=== PATIENT | male | born 1945 | race Caucasian/White ===

== ENCOUNTER 2017-08-05 06:40 | Day surgery (SDC) | payer MEDICARE ==
[2017-08-01 15:25] VITALS: BMI 30.8
[~2017-08-05 06:40] MED LIST: LACTATED RINGERS 1,000 ML IV SCH
[2017-08-05 07:18] VITALS: TEMP 98.7
[2017-08-05 07:43] LABS: Glucose,Whole Blood 124 mg/dL (75-99)
[2017-08-05] MEDS ORDERED: PROPOFOL 10 MG/ML 20 ML VIAL IV ONE (07:44)
--- NOTE | 2017-08-05 07:46 | P.GSHP ---
History of Present Illness H&P Date: 08/05/17 Chief Complaint: Screening colonoscopy This is a 72-year-old male referred from Dr. Castle. Patient rents today for screening colonoscopy. He denies a significant GI complaints. Past Medical History Past Medical History: Atrial Fibrillation, Coronary Artery Disease (CAD), Diabetes Mellitus, Hyperlipidemia, Hypertension, Osteoarthritis (OA) History of Any Multi-Drug Resistant Organisms: None Reported Past Surgical History: Appendectomy, Tonsillectomy Additional Past Surgical History / Comment(s): rectal abcess, carpal tunnel, cardioversion Past Anesthesia/Blood Transfusion Reactions: No Reported Reaction Smoking Status: Former smoker - Past Family History Mother Family Medical History: Cancer Medications and Allergies Home Medications Medication Instructions Recorded Confirmed Type Albuterol Sulfate [Ventolin HFA] 2 puff INHALATION RT-Q4H PRN 09/09/15 08/05/17 History Atorvastatin [Lipitor] 10 mg PO DAILY 09/09/15 08/05/17 History Temazepam [Restoril] 30 mg PO HS 09/09/15 08/05/17 History metFORMIN HCL [Glucophage] 500 mg PO DAILY 09/09/15 08/05/17 History Allergies Allergy/AdvReac Type Severity Reaction Status Date / Time No Known Allergies Allergy Verified 08/01/17 15:35 Surgical - Exam Vital Signs Temp Pulse Resp BP Pulse Ox 98.7 F 69 14 133/74 94 L 08/05/17 07:11 08/05/17 07:11 08/05/17 07:11 08/05/17 07:11 08/05/17 07:11 - General well developed, no distress - Eyes PERRL - ENT normal pinna - Neck no masses - Respiratory normal expansion - Cardiovascular Rhythm: regular - Abdomen Abdomen: soft, non tender Results - Labs Abnormal Lab Results - Last 24 Hours (Table) 08/05/17 Range/Units 07:24 POC Glucose (mg/dL) 124 H (75-99) mg/dL Assessment and Plan Assessment: We'll perform screening colonoscopy.
[2017-08-05 08:17] VITALS: BP 115/79; PULSE 69; RESP 18
--- NOTE | 2017-08-05 13:46 | P.OP ---
Date of Procedure: 08/05/17 Preoperative Diagnosis: Screening colonoscopy Postoperative Diagnosis: Normal colon Hemorrhoids Procedure(s) Performed: Colonoscopy Anesthesia: MAC Surgeon: Cristiano Martinez Pathology: none sent Condition: stable Disposition: PACU Description of Procedure: PROCEDURE: The patient was placed on the endoscopy table in the lateral position. Digital rectal examination was performed which revealed mild external hemorrhoids.. The prostate was symmetrical without nodules. Flexible colonoscope was then placed in the patient's anus and passed throughout the entire colon. The ileocecal valve was visualized. The cecum, ascending, transverse, descending and sigmoid colon were normal. The rectum was normal as well. There were no masses, polyps or diverticula noted in the entire colon.
== END 2017-08-05 08:50 | disposition home or self-care (01) ==
LOC: ORWHC2ENDO 06:40
PROVIDERS: ATTEND Surgery
DX: Z12.11 Encounter for screening for malignant neoplasm of colon (principal); I48.91 Unspecified atrial fibrillation; I25.10 Atherosclerotic heart disease of native coronary artery without angina pectoris; K64.4 Residual hemorrhoidal skin tags; E11.9 Type 2 diabetes mellitus without complications; I10 Essential (primary) hypertension; E78.5 Hyperlipidemia, unspecified; M19.90 Unspecified osteoarthritis, unspecified site; Z87.891 Personal history of nicotine dependence; Z79.84 Long term (current) use of oral hypoglycemic drugs; Z79.899 Other long term (current) drug therapy
CPT/HCPCS: J2704; G0121; 45378

== ENCOUNTER 2017-09-05 12:08 | Inpatient (IN) | payer MEDICARE ==
[2017-09-05] MEDS ORDERED: DILTIAZEM DRIP BOLUS FROM BAG 1 MG SOLN IV ONE (12:32)
--- NOTE | 2017-09-05 12:34 | ED ---
General Adult HPI - General Chief complaint: Recheck/Abnormal Lab/Rx Stated complaint: abnormal ekg Time Seen by Provider: 09/05/17 12:22 Source: patient, RN notes reviewed Mode of arrival: wheelchair Limitations: no limitations - History of Present Illness Initial comments: Patient is a pleasant 72-year-old male presenting to the emergency department after being seen a Dr. Castle's office with concerns for heart rhythm problems. Patient does have a history of atrial fibrillation twice previously however is not on any medication for it at this time. Patient did previously seen Dr. Fajardo for this and was taken off medications. Patient denies any palpitations. Patient denies any dyspnea. Patient has chronic chest discomfort for the past 13 years that he is stable and unchanged. Patient states he has some discomfort of his right upper teeth in the back and that's why he went to the doctor's office. Patient states he was hoping to see a dentist. - Related Data Home Medications Medication Instructions Recorded Confirmed Atorvastatin [Lipitor] 10 mg PO DAILY 09/09/15 09/05/17 Temazepam [Restoril] 30 mg PO HS 09/09/15 09/05/17 metFORMIN HCL [Glucophage] 500 mg PO DAILY 09/09/15 09/05/17 Allergies Allergy/AdvReac Type Severity Reaction Status Date / Time No Known Allergies Allergy Verified 09/05/17 12:46 Review of Systems ROS Statement: Those systems with pertinent positive or pertinent negative responses have been documented in the HPI. ROS Other: All systems not noted in ROS Statement are negative. Constitutional: Denies: fever Eyes: Denies: eye pain ENT: Reports: dental pain. Denies: ear pain Respiratory: Denies: cough, dyspnea Cardiovascular: Denies: chest pain, palpitations Endocrine: Denies: fatigue Gastrointestinal: Denies: abdominal pain Genitourinary: Denies: dysuria Musculoskeletal: Denies: back pain Skin: Denies: rash Neurological: Denies: weakness Past Medical History Past Medical History: Atrial Fibrillation, Coronary Artery Disease (CAD), Diabetes Mellitus, Hyperlipidemia, Hypertension, Osteoarthritis (OA) History of Any Multi-Drug Resistant Organisms: None Reported Past Surgical History: Appendectomy, Tonsillectomy Additional Past Surgical History / Comment(s): rectal abcess, carpal tunnel, cardioversion Past Anesthesia/Blood Transfusion Reactions: No Reported Reaction Past Psychological History: PTSD Smoking Status: Former smoker - Past Family History Mother Family Medical History: Cancer General Exam Limitations: no limitations General appearance: alert, in no apparent distress Head exam: Present: atraumatic Eye exam: Present: normal appearance, PERRL ENT exam: Present: other (No facial swelling. No obvious dental abscess or obvious dental caries on gross exam. No dental tenderness.) Neck exam: Present: normal inspection Respiratory exam: Present: normal lung sounds bilaterally Cardiovascular Exam: Present: tachycardia, irregular rhythm Expanded Peripheral pulses: 2+: Radial (R), Radial (L), Dorsalis Pedis (R), Dorsalis Pedis (L) GI/Abdominal exam: Present: soft. Absent: tenderness Extremities exam: Present: normal inspection Neurological exam: Present: alert Psychiatric exam: Present: normal affect, normal mood Skin exam: Present: normal color Course Vital Signs 09/05/17 09/05/17 09/05/17 12:16 13:19 13:54 Temperature 98 F Pulse Rate 121 H 143 H 124 H Pulse Rate [ Expressive Therapist ] Respiratory 18 20 18 Rate Blood Pressure 134/87 125/72 104/78 O2 Sat by Pulse 97 99 96 Oximetry 09/05/17 13:56 Temperature Pulse Rate Pulse Rate [ 132 H Expressive Therapist ] Respiratory Rate Blood Pressure O2 Sat by Pulse Oximetry EKG Findings - EKG Comments: EKG Findings:: A. fib with RVR, rate 135. QRS 86. QT 284. QTC 426. Normal axis. Normal QRS. No acute ST change. Medical Decision Making - Medical Decision Making Patient reevaluated and resting comfortably in bed. No complaints at this time. Heart rate remains between 120 and 140. Cardizem drip will be increased. Case was discussed with Dr. Castle, who will admit his patient. Patient and family updated. - Lab Data Result diagrams: 09/05/17 12:46 09/05/17 12:46 Lab Results 09/05/17 09/05/17 09/05/17 Range/Units 12:46 12:46 12:46 WBC 7.3 (3.8-10.6) k/uL RBC 4.57 (4.30-5.90) m/uL Hgb 15.7 (13.0-17.5) gm/dL Hct 42.9 (39.0-53.0) % MCV 93.9 (80.0-100.0) fL MCH 34.4 (25.0-35.0) pg MCHC 36.6 (31.0-37.0) g/dL RDW 14.6 (11.5-15.5) % Plt Count 179 (150-450) k/uL Neutrophils % 61 % Lymphocytes % 31 % Monocytes % 4 % Eosinophils % 2 % Basophils % 0 % Neutrophils # 4.5 (1.3-7.7) k/uL Lymphocytes # 2.3 (1.0-4.8) k/uL Monocytes # 0.3 (0-1.0) k/uL Eosinophils # 0.1 (0-0.7) k/uL Basophils # 0.0 (0-0.2) k/uL PT (9.0-12.0) sec INR (<1.2) APTT (22.0-30.0) sec Sodium 141 (137-145) mmol/L Potassium 4.0 (3.5-5.1) mmol/L Chloride 108 H (98-107) mmol/L Carbon Dioxide 22 (22-30) mmol/L Anion Gap 11 mmol/L BUN 16 (9-20) mg/dL Creatinine 0.70 (0.66-1.25) mg/dL Est GFR (CKD-EPI)AfAm >90 (>60 ml/min/1.73 sqM) Est GFR (CKD-EPI)NonAf >90 (>60 ml/min/1.73 sqM) Glucose 124 H (74-99) mg/dL Calcium 9.3 (8.4-10.2) mg/dL Magnesium 1.7 (1.6-2.3) mg/dL Total Bilirubin 1.3 (0.2-1.3) mg/dL AST 29 (17-59) U/L ALT 40 (21-72) U/L Alkaline Phosphatase 74 (38-126) U/L Total Creatine Kinase 43 L (55-170) U/L CK-MB (CK-2) 0.7 (0.0-2.4) ng/mL CK-MB (CK-2) Rel Index 1.6 Troponin I <0.012 (0.000-0.034) ng/mL NT-Pro-B Natriuret Pep pg/mL Total Protein 6.0 L (6.3-8.2) g/dL Albumin 3.6 (3.5-5.0) g/dL TSH 1.020 (0.465-4.680) mIU/L Free T4 1.20 (0.78-2.19) ng/dL Free T3 pg/mL 3.7 (2.8-5.3) pg/ml 09/05/17 09/05/17 Range/Units 12:46 12:46 WBC (3.8-10.6) k/uL RBC (4.30-5.90) m/uL Hgb (13.0-17.5) gm/dL Hct (39.0-53.0) % MCV (80.0-100.0) fL MCH (25.0-35.0) pg MCHC (31.0-37.0) g/dL RDW (11.5-15.5) % Plt Count (150-450) k/uL Neutrophils % % Lymphocytes % % Monocytes % % Eosinophils % % Basophils % % Neutrophils # (1.3-7.7) k/uL Lymphocytes # (1.0-4.8) k/uL Monocytes # (0-1.0) k/uL Eosinophils # (0-0.7) k/uL Basophils # (0-0.2) k/uL PT 10.6 (9.0-12.0) sec INR 1.1 (<1.2) APTT 22.5 (22.0-30.0) sec Sodium (137-145) mmol/L Potassium (3.5-5.1) mmol/L Chloride (98-107) mmol/L Carbon Dioxide (22-30) mmol/L Anion Gap mmol/L BUN (9-20) mg/dL Creatinine (0.66-1.25) mg/dL Est GFR (CKD-EPI)AfAm (>60 ml/min/1.73 sqM) Est GFR (CKD-EPI)NonAf (>60 ml/min/1.73 sqM) Glucose (74-99) mg/dL Calcium (8.4-10.2) mg/dL Magnesium (1.6-2.3) mg/dL Total Bilirubin (0.2-1.3) mg/dL AST (17-59) U/L ALT (21-72) U/L Alkaline Phosphatase (38-126) U/L Total Creatine Kinase (55-170) U/L CK-MB (CK-2) (0.0-2.4) ng/mL CK-MB (CK-2) Rel Index Troponin I (0.000-0.034) ng/mL NT-Pro-B Natriuret Pep 1960 pg/mL Total Protein (6.3-8.2) g/dL Albumin (3.5-5.0) g/dL TSH (0.465-4.680) mIU/L Free T4 (0.78-2.19) ng/dL Free T3 pg/mL (2.8-5.3) pg/ml - Radiology Data Radiology results: image reviewed (Chest x-ray shows some. Bronchial cuffing that could reflect bronchitis or asthma. Otherwise no acute process.) Critical Care Time Critical Care Time: Yes Total Critical Care Time: 33 Disposition Clinical Impression: Atrial fibrillation with RVR Disposition: ADMITTED IP TO THIS HOSP Is patient prescribed a controlled substance at d/c from ED?: No Referrals: Manuelito Castle MD [Primary Care Provider] - 1-2 days Decision Time: 15:08
[2017-09-05 12:58] LABS: Basophils % (A) 0 %; Eosinophils # (A) 0.1 k/uL (0-0.7); Eosinophils % (A) 2 %; HCT 42.9 % (39.0-53.0); HGB 15.7 gm/dL (13.0-17.5); Lymphocytes # (A) 2.3 k/uL (1.0-4.8); Lymphocytes % (A) 31 %; MCH 34.4 pg (25.0-35.0); MCHC 36.6 g/dL (31.0-37.0); MCV 93.9 fL (80.0-100.0); Mean Platelet Volume 6.7; Monocytes # (A) 0.3 k/uL (0-1.0); Monocytes % (A) 4 %; Neutrophils # (A) 4.5 k/uL (1.3-7.7); Neutrophils % (A) 61 %; Platelet Count 179 k/uL (150-450); RBC 4.57 m/uL (4.30-5.90); RDW 14.6 % (11.5-15.5); WBC 7.3 k/uL (3.8-10.6)
[2017-09-05 13:09] LABS: ALT 40 U/L (21-72); AST 29 U/L (17-59); Albumin 3.6 g/dL (3.5-5.0); Alkaline Phosphatase 74 U/L (38-126); Anion Gap 11 mmol/L; Blood Urea Nitrogen 16 mg/dL (9-20); Calcium 9.3 mg/dL (8.4-10.2); Carbon Dioxide 22 mmol/L (22-30); Chloride 108 mmol/L (98-107); Glucose 124 mg/dL (74-99); Magnesium 1.7 mg/dL (1.6-2.3); Sodium 141 mmol/L (137-145); Total Bilirubin 1.3 mg/dL (0.2-1.3)
[2017-09-05 13:17] LABS: Creatine Kinase 43 U/L (55-170)
[2017-09-05] MEDS: DILTIAZEM 50 MG in SODIUM CHLORIDE 0.9% 40 ML IV SCH ×2 (13:20→21:11)
[2017-09-05] MEDS: SODIUM CHLORIDE 0.9% 500 ML IV SCH (13:20)
--- NOTE | 2017-09-05 13:20 | XR ---
EXAMINATION TYPE: XR chest 2V DATE OF EXAM: 09/05/2017 COMPARISON: 06/29/2013 HISTORY: 72-year-old male with dysrhythmia TECHNIQUE: Frontal and lateral views FINDINGS: Heart upper limits of normal in size. Aorta and pulmonary vasculature within normal limits. Mild clara bronchial cuffing is noted. Strandy atelectasis left base. No pleural effusion. IMPRESSION: Some peribronchial cuffing could reflect bronchitis or asthma. Otherwise, no acute process seen.
[2017-09-05 13:22] LABS: INR 1.1 (<1.2); Partial Thromboplastin Time 22.5 sec (22.0-30.0); Prothrombin Time 10.6 sec (9.0-12.0)
[2017-09-05 13:29] LABS: Creatine Kinase MB 0.7 ng/mL (0.0-2.4); Troponin I <0.012 ng/mL (0.000-0.034)
[2017-09-05] MEDS ORDERED: ASPIRIN 81 MG PO STA (15:08)
[2017-09-05] MEDS ORDERED: NITROGLYCERIN SL TABS 0.4 MG TAB SUBLINGUAL PRN (15:08)
[2017-09-05] MEDS ORDERED: HEPARIN SODIUM,PORCINE 5,000 UNIT/ML 1 ML VIAL IV PRN (15:10)
[2017-09-05] MEDS ORDERED: HEPARIN SODIUM,PORCINE 5,000 UNIT/ML 1 ML VIAL IV ONE (15:10)
[2017-09-05] MEDS: HEPARIN SOD,PORK IN 0.45% NACL 25,000 UNIT in 0.45% NACL 1 500ML.BAG IV SCH (15:41)
[2017-09-05 19:13] LABS: Creatine Kinase 38 U/L (55-170)
[2017-09-05 19:26] LABS: Creatine Kinase MB 0.6 ng/mL (0.0-2.4); Troponin I <0.012 ng/mL (0.000-0.034)
[2017-09-05 22:11] VITALS: BMI 32.3
[2017-09-06 01:38] LABS: Creatine Kinase 35 U/L (55-170)
[2017-09-06 01:51] LABS: Creatine Kinase MB 0.7 ng/mL (0.0-2.4); Troponin I <0.012 ng/mL (0.000-0.034)
[2017-09-06] MEDS: DILTIAZEM 50 MG in SODIUM CHLORIDE 0.9% 40 ML IV SCH ×3 (05:41→07:41)
[2017-09-06 06:14] LABS: Glucose,Whole Blood 118 mg/dL (75-99)
[2017-09-06 06:21] LABS: Basophils % (A) 0 %; Eosinophils # (A) 0.1 k/uL (0-0.7); Eosinophils % (A) 2 %; HCT 41.2 % (39.0-53.0); HGB 14.7 gm/dL (13.0-17.5); Lymphocytes % (A) 32 %; MCH 33.8 pg (25.0-35.0); MCHC 35.6 g/dL (31.0-37.0); MCV 95.1 fL (80.0-100.0); Mean Platelet Volume 6.8; Monocytes # (A) 0.3 k/uL (0-1.0); Monocytes % (A) 5 %; Neutrophils # (A) 3.7 k/uL (1.3-7.7); Neutrophils % (A) 60 %; Platelet Count 158 k/uL (150-450); RBC 4.33 m/uL (4.30-5.90); RDW 14.9 % (11.5-15.5); WBC 6.1 k/uL (3.8-10.6)
[2017-09-06 06:48] LABS: Cholesterol 133 mg/dL (<200); HDL Cholesterol 33 mg/dL (40-60); LDL Cholesterol,Calculated 74 mg/dL (0-99); Triglycerides 128 mg/dL (<150)
--- NOTE | 2017-09-06 07:14 | P.HPIM ---
History of Present Illness H&P Date: 09/06/17 Chief Complaint: Recurrent atrial fibrillation This is a 72-year-old white male who saw my nurse practitioner yesterday and was found to have recurrent atrial fibrillation. He is had this in the past but has not done a great job taking care of himself secondary to a who is struggling with end-stage dementia and elements of family members who are also having poor health with seizure disorder. He states he is the only one who usually helps the family and they're times of need. Recurrent atrial fibrillation with rapid ventricular response is noted and the patient is now admitted for treatment. He states in the past she's been on Xarelto but that was weaned after his rhythm stabilized and he was taking only baby aspirin. The patient is now placed on diltiazem drip and stabilizing at this point. Review of Systems Constitutional: Denies chills, Denies fever Eyes: denies blurred vision, denies pain Ears, nose, mouth and throat: Denies headache, Denies sore throat Cardiovascular: Reports as per HPI, Reports palpitations Respiratory: Denies cough Gastrointestinal: Denies abdominal pain, Denies diarrhea, Denies nausea, Denies vomiting Genitourinary: Denies discharge Musculoskeletal: Denies myalgias Past Medical History Past Medical History: Atrial Fibrillation, Coronary Artery Disease (CAD), Diabetes Mellitus, Hyperlipidemia, Hypertension, Osteoarthritis (OA) History of Any Multi-Drug Resistant Organisms: None Reported Past Surgical History: Appendectomy, Tonsillectomy Additional Past Surgical History / Comment(s): rectal abcess, carpal tunnel, cardioversion Past Anesthesia/Blood Transfusion Reactions: No Reported Reaction Past Psychological History: PTSD Smoking Status: Former smoker Past Alcohol Use History: None Reported Additional Past Alcohol Use History / Comment(s): started smoking at age 16 quit 1999 smoked 1ppd Past Drug Use History: None Reported - Past Family History Mother Family Medical History: Cancer Medications and Allergies Home Medications Medication Instructions Recorded Confirmed Type Atorvastatin [Lipitor] 10 mg PO DAILY 09/09/15 09/05/17 History Temazepam [Restoril] 30 mg PO HS 09/09/15 09/05/17 History metFORMIN HCL [Glucophage] 500 mg PO DAILY 09/09/15 09/05/17 History Allergies Allergy/AdvReac Type Severity Reaction Status Date / Time No Known Allergies Allergy Verified 09/05/17 12:46 Physical Exam Vitals: Vital Signs Temp Pulse Pulse Resp BP BP Pulse Ox 09/06/17 04:00 116 H 111/71 09/06/17 03:46 80 18 09/06/17 00:00 97 F L 69 14 119/66 98 09/05/17 21:13 87 18 116/77 97 09/05/17 20:00 100 18 112/80 96 09/05/17 19:55 88 09/05/17 19:06 97.5 F L 87 97 09/05/17 18:58 100 18 111/68 95 09/05/17 17:34 113 H 18 130/86 97 09/05/17 16:00 133 H 16 138/100 96 09/05/17 13:56 132 H 09/05/17 13:54 124 H 18 104/78 96 09/05/17 13:19 143 H 20 125/72 99 09/05/17 12:16 98 F 121 H 18 134/87 97 Intake and Output 09/05/17 09/06/17 09/06/17 22:59 06:59 14:59 Intake Total 50.0 351.851 Output Total 2 2 Balance 48.0 349.851 Intake: Intake, IV Titration 50.0 351.851 Amount Diltiazem 50 mg In Sodium 50.0 52.667 Chloride 0.9% 40 ml @ 10 MG/HR 10 mls/hr IV .Q5H PRITI Rx#:[id number] Heparin Sod,Pork in 0.45% 299.184 NaCl 25,000 unit In 0.45 % NaCl 1 500ml.bag @ 9.93 UNITS/KG/HR 19.99 mls/hr IV .Q24H PRITI Rx#: [id number] Output: Urine 2 2 Other: # Voids 2 1 Weight 99.337 kg 99.6 kg - EENT Eyes: EOMI - Neck Neck: no lymphadenopathy - Respiratory Respiratory: bilateral: CTA - Cardiovascular Rhythm: irregularly irregular Heart sounds: normal: S1, S2 Abnormal Heart Sounds: no S3 Gallop - Gastrointestinal General gastrointestinal: soft, no tenderness - Integumentary Integumentary: no cellulitis Results CBC & Chem 7: 09/06/17 06:03 09/05/17 12:46 Labs: Abnormal Lab Results - Last 24 Hours (Table) 09/05/17 09/05/17 09/05/17 Range/Units 12:46 12:46 18:41 APTT (22.0-30.0) sec Chloride 108 H (98-107) mmol/L Glucose 124 H (74-99) mg/dL POC Glucose (mg/dL) (75-99) mg/dL Total Creatine Kinase 43 L 38 L (55-170) U/L Total Protein 6.0 L (6.3-8.2) g/dL HDL Cholesterol (40-60) mg/dL 09/05/17 09/06/17 09/06/17 Range/Units 21:07 00:54 06:03 APTT 62.9 H (22.0-30.0) sec Chloride (98-107) mmol/L Glucose (74-99) mg/dL POC Glucose (mg/dL) (75-99) mg/dL Total Creatine Kinase 35 L (55-170) U/L Total Protein (6.3-8.2) g/dL HDL Cholesterol 33 L (40-60) mg/dL 09/06/17 09/06/17 Range/Units 06:03 06:10 APTT 44.8 H (22.0-30.0) sec Chloride (98-107) mmol/L Glucose (74-99) mg/dL POC Glucose (mg/dL) 118 H (75-99) mg/dL Total Creatine Kinase (55-170) U/L Total Protein (6.3-8.2) g/dL HDL Cholesterol (40-60) mg/dL Thrombosis Risk Factor Assmnt - Choose All That Apply Other Risk Factors: Yes Each Risk Factor Represents 2 Points: Age 61-74 years Thrombosis Risk Factor Assessment Total Risk Factor Score: 2 Thrombosis Risk Factor Assessment Level: Low Risk Assessment and Plan (1) Diabetes Current Visit: Yes Status: Acute Code(s): E11.9 - TYPE 2 DIABETES MELLITUS WITHOUT COMPLICATIONS SNOMED Code(s): 71930504 (2) Hyperlipidemia Current Visit: Yes Status: Acute Code(s): E78.5 - HYPERLIPIDEMIA, UNSPECIFIED SNOMED Code(s): 81464203 (3) Atrial fibrillation with RVR Current Visit: Yes Status: Acute Code(s): I48.91 - UNSPECIFIED ATRIAL FIBRILLATION SNOMED Code(s): 318295459858082 Plan: Continue current regimen of treatment. Cardiology to be consulted. Transition from IV to oral medication most likely today. Check echocardiogram today. Myocardial infraction is ruled out. Anticipate discharge once stabilized in the next 24-48 hours. Time with Patient: Greater than 30
[2017-09-06] MEDS: METOPROLOL SUCCINATE (ER) 50 MG TAB.ER.24H PO SCH (08:40)
[2017-09-06] MEDS ORDERED: ASPIRIN 325 MG TAB PO SCH (09:00)
--- NOTE | 2017-09-06 10:25 | CONS ---
CONSULTATION CHIEF COMPLAINT: Atrial fibrillation. This is a 72-year-old gentleman with history of atrial fibrillation, who was admitted to hospital with an episode of atrial fibrillation. He denies chest pain, shortness of breath, palpitations, dizziness or syncope, but has atrial fibrillation with rapid ventricular rate and is currently being treated with heparin and Cardizem. At the time of my evaluation, he appears comfortable at rest and is free of symptoms. PAST MEDICAL HISTORY: Significant for atrial fibrillation, coronary artery disease, diabetes, hypertension, dyslipidemia, and osteoarthritis. PAST SURGICAL HISTORY: Significant for appendectomy and tonsillectomy. There is also history of cardioversion, carpal tunnel surgery and rectal abscess. MEDICATIONS: At home include Restoril, Glucophage and Lipitor. ALLERGIES: There are no known drug allergies. FAMILY HISTORY: Negative for premature coronary artery disease. SOCIAL HISTORY: Negative for smoking, EtOH abuse, or drug abuse. REVIEW OF SYSTEMS: HEENT is unremarkable. CARDIAC: As described above. RESPIRATORY: Negative. GI: Negative. GENITOURINARY: Negative. ALLERGY/IMMUNOLOGY: Negative. SKIN: Negative. MUSCULOSKELETAL: Negative. ENDOCRINE: Negative. DERMATOLOGICAL: Negative. CONSTITUTIONAL: Negative. ONCOLOGICAL: Negative. Rest of the system review is not relevant. PHYSICAL EXAM: Patient is comfortable at rest. Heart rate is 80 beats per minute, irregular. Blood pressure is 111/70, respiratory rate is 18, O2 sat is 98%. There is no jugular venous distention. Carotid upstroke is normal. There is no bruit. Chest exam reveals good air entry bilaterally. Heart exam reveals first and second heart sounds, irregular rhythm. Abdomen is soft. Exam of the extremities did not reveal any edema. Peripheral pulses are felt. LABS: Show a hemoglobin of 14.7, platelet count is 158, potassium is 4, creatinine is 0.7. TSH is 1. LDL cholesterol is 74. EKG rhythm strips show atrial fibrillation. EKG shows atrial fibrillation with nonspecific ST-T wave changes. ASSESSMENT: Chronic atrial fibrillation with poorly controlled ventricular rate. PLAN: I am going to control the heart rate with beta blockers and calcium channel blockers. Start him on Xarelto 20 mg daily. Obtain a 2D echo. TSH is within normal limits. Once heart rate is well controlled, he can be discharged home and outpatient followup arranged with Dr. Fajardo, his primary pooling operator. MMODL / IJN: [id number] /
[2017-09-06 11:40] LABS: Glucose,Whole Blood 126 mg/dL (75-99)
--- NOTE | 2017-09-06 12:32 | ECHOF ---
Referral Reason:atrial fibrillation MEASUREMENTS -------- HEIGHT: 175.3 cm WEIGHT: 99.3 kg BP: 111/71 IVSd: 1.6 cm (0.6 - 1.1) LVIDd: 2.8 cm (3.9 - 5.3) LVPWd: 1.4 cm (0.6 - 1.1) IVSs: 1.6 cm LVIDs: 1.9 cm LVPWs: 1.7 cm Ao Diam: 3.1 cm (2.0 - 3.7) AV Cusp: 2.0 cm (1.5 - 2.6) LA Diam: 3.6 cm (2.7 - 3.8) RAP: 5.00 mmHg RVSP: 8.92 mmHg FINDINGS -------- Atrial fibrillation. This was a technically adequate study. The left ventricular size is normal. There is moderate concentric left ventricular hypertrophy. O verall left ventricular systolic function is low-normal with, an EF between 50 - 55 %. The right ventricle is normal in size and function. The left atrium is normal in size. The right atrium is normal in size. The aortic valve is trileaflet, and appears structurally normal. No aortic stenosis or regurgitation. The mitral valve leaflets are mildly thickened. Mild mitral regurgitation is present. Mild tricuspid regurgitation present. The right ventricular systolic pressure, as measured by Doppl er, is 8.92mmHg. Pulmonic valve appears structurally normal. The aortic root size is normal. Echo free space indicative of a pericardial fat pad. CONCLUSIONS -------- 1. Atrial fibrillation. 2. This was a technically adequate study. 3. The left ventricular size is normal. 4. There is moderate concentric left ventricular hypertrophy. 5. Overall left ventricular systolic function is low-normal with, an EF between 50 - 55 %. 6. The right ventricle is normal in size and function. 7. The left atrium is normal in size. 8. The right atrium is normal in size. 9. The aortic valve is trileaflet, and appears structurally normal. No aortic stenosis or regurgitati on. 10. The mitral valve leaflets are mildly thickened. 11. Mild mitral regurgitation is present. 12. Mild tricuspid regurgitation present. 13. The right ventricular systolic pressure, as measured by Doppler, is 8.92mmHg. 14. Pulmonic valve appears structurally normal. 15. The aortic root size is normal. 16. Echo free space indicative of a pericardial fat pad. CAPTAIN'S ASSISTANT: Chapis Chowdhury RDCS
[2017-09-06] MEDS: SODIUM CHLORIDE 0.9% 500 ML IV SCH (14:57)
[2017-09-06] MEDS: RIVAROXABAN 20 MG TAB PO SCH (15:55)
[2017-09-06] MEDS: HEPARIN SOD,PORK IN 0.45% NACL 25,000 UNIT in 0.45% NACL 1 500ML.BAG IV SCH (17:00)
[2017-09-06 17:14] LABS: Glucose,Whole Blood 118 mg/dL (75-99)
[2017-09-06 21:12] LABS: Glucose,Whole Blood 123 mg/dL (75-99)
[2017-09-07 06:57] LABS: Glucose,Whole Blood 128 mg/dL (75-99)
[2017-09-07 07:53] LABS: Basophils % (A) 0 %; Eosinophils # (A) 0.1 k/uL (0-0.7); Eosinophils % (A) 2 %; HCT 43.2 % (39.0-53.0); HGB 14.8 gm/dL (13.0-17.5); Lymphocytes # (A) 1.7 k/uL (1.0-4.8); Lymphocytes % (A) 31 %; MCH 32.9 pg (25.0-35.0); MCHC 34.4 g/dL (31.0-37.0); MCV 95.9 fL (80.0-100.0); Mean Platelet Volume 6.7; Monocytes # (A) 0.3 k/uL (0-1.0); Monocytes % (A) 6 %; Neutrophils # (A) 3.4 k/uL (1.3-7.7); Neutrophils % (A) 60 %; Platelet Count 156 k/uL (150-450); RDW 14.8 % (11.5-15.5); WBC 5.6 k/uL (3.8-10.6)
[2017-09-07] MEDS ORDERED: DEXTROSE 5% IN WATER 100 ML with AMIODARONE 150 MG IV ONE (10:51)
[2017-09-07] MEDS: ASPIRIN 81 MG PO SCH (11:54)
[2017-09-07] MEDS: METOPROLOL SUCCINATE (ER) 50 MG TAB.ER.24H PO SCH (11:54)
--- NOTE | 2017-09-07 12:01 | P.PN ---
Subjective Progress Note Date: 09/07/17 This is 72-year-old gentleman with history of atrial fibrillation was admitted to the hospital with atrial fibrillation. He denies any symptoms of chest pain, shortness of breath, palpitations, dizziness or syncope. He was found to be in A. fib at his doctor's office. He does have history of coronary artery disease, diabetes, hypertension, hyperlipidemia, and osteoarthritis. Patient was seen and examined this morning, his heart rate continues to be in the 120 to 1:30 range and for this reason we are to start him on amiodarone. We will continue current dose of beta esperanza. His blood pressure is in the 100 systolic range. Echocardiogram with Doppler study was performed which revealed a normal left ventricular systolic function. Objective - Vital Signs Vital signs: Vital Signs Temp 97.5 F L 09/06/17 20:00 Pulse 101 H 09/06/17 20:00 Resp 20 09/06/17 20:00 BP 101/68 09/06/17 20:00 Pulse Ox 96 09/06/17 20:00 Intake & Output 09/06/17 09/07/17 09/07/17 18:59 06:59 18:59 Intake Total 758 600 Output Total 2 Balance 758 598 Intake: Oral 758 600 Output: Urine 2 Other: # Voids 2 1 - Exam PHYSICAL EXAMINATION: GENERAL: 72-year-old gentleman in no. Distress at the time of my examination HEENT: Head is atraumatic, normocephalic. Pupils equal, round. Sclera anicteric. Conjunctiva are clear. Mucous membranes of the mouth are moist. Neck is supple. There is no elevated jugular venous pressure.] bruit is heard. HEART EXAMINATION: Her S1 and S2 irregularly irregular CHEST EXAMINATION: Lungs are clear to auscultation and precussion. No chest wall tenderness is noted on palpation or with deep breathing. ABDOMEN: Soft, nontender. Bowel sounds are heard. No organomegaly noted. EXTREMITIES: 2+ peripheral pulses with no evidence of peripheral edema and no calf tenderness noted. NEUROLOGIC patient is awake, alert and oriented ?-3. . - Labs CBC & Chem 7: 09/06/17 06:03 09/05/17 12:46 Labs: Abnormal Lab Results - Last 24 Hours (Table) 09/06/17 09/06/17 09/06/17 Range/Units 12:21 16:38 21:11 APTT 46.5 H (22.0-30.0) sec POC Glucose (mg/dL) 118 H 123 H (75-99) mg/dL 09/07/17 Range/Units 06:55 APTT (22.0-30.0) sec POC Glucose (mg/dL) 128 H (75-99) mg/dL Assessment and Plan Plan: Assessment and plan #1 persistent atrial fibrillation #2 diabetes #3 hyperlipidemia Plan We will continue Xarelto as well as beta esperanza, we will also start the patient on IV amiodarone for more optimal heart rate control. TSH normal. DNP note has been reviewed, I agree with a documented findings and plan of care. Patient was seen and examined.
[2017-09-07] MEDS: AMIODARONE 450 MG in DEXTROSE 5% IN WATER 250 ML IV SCH ×4 (14:15→19:57)
[2017-09-07] MEDS: SODIUM CHLORIDE 0.9% 500 ML IV SCH (14:17)
[2017-09-07 16:25] VITALS: RESP 16
[2017-09-07] MEDS: RIVAROXABAN 20 MG TAB PO SCH (16:31)
[2017-09-07] MEDS ORDERED: ACETAMINOPHEN TAB 325 MG TAB PO PRN (19:59)
--- NOTE | 2017-09-07 22:08 | P.PN ---
Subjective Progress Note Date: 09/07/17 Principal diagnosis: The patient is here essentially for recurrent atrial fibrillation with rapid ventricular response. The patient had cardiac catheterization supposedly yesterday. Unfortunately, the EMR was not up this morning. We will review appropriate documentation. RVR still present. The patient is asymptomatic otherwise. No Voiding difficulties stated otherwise. Objective - Vital Signs Vital signs: Vital Signs Temp 97 F L 09/07/17 20:00 Pulse 60 09/07/17 20:00 Resp 16 09/07/17 20:00 BP 120/81 09/07/17 20:00 Pulse Ox 96 09/07/17 20:00 Intake & Output 09/07/17 09/07/17 09/08/17 06:59 18:59 06:59 Intake Total 600 480 189.981 Output Total 2 700 Balance 598 -220 189.981 Intake: Intake, IV Titration 189.981 Amount Amiodarone 450 mg In 189.981 Dextrose 5% in Water 250 ml @ 1 MG/MIN 33.33 mls/ hr IV .Q7H31M [facility] Rx#: [id number] Oral 600 480 Output: Urine 2 700 Other: # Voids 1 2 # Bowel Movements 1 - Constitutional General appearance: Present: average body habitus - EENT Eyes: Absent: abnormal pupil - Neck Neck: Absent: lymphadenopathy - Respiratory Respiratory: bilateral: CTA - Cardiovascular Rhythm: irregularly irregular Heart sounds: normal: S1, S2 Abnormal Heart Sounds: Absent: S3 Gallop - Gastrointestinal General gastrointestinal: Present: soft. Absent: tenderness - Labs CBC & Chem 7: 09/07/17 05:51 09/05/17 12:46 Labs: Abnormal Lab Results - Last 24 Hours (Table) 09/07/17 Range/Units 06:55 POC Glucose (mg/dL) 128 H (75-99) mg/dL Assessment and Plan (1) Diabetes Current Visit: Yes Status: Acute Code(s): E11.9 - TYPE 2 DIABETES MELLITUS WITHOUT COMPLICATIONS SNOMED Code(s): 19177757 (2) Hyperlipidemia Current Visit: Yes Status: Acute Code(s): E78.5 - HYPERLIPIDEMIA, UNSPECIFIED SNOMED Code(s): 31946795 (3) Atrial fibrillation with RVR Current Visit: Yes Status: Acute Code(s): I48.91 - UNSPECIFIED ATRIAL FIBRILLATION SNOMED Code(s): 425553390236010 Plan: Past appropriate anticoagulation. Rate control still somewhat high. Appreciate cardiology input. Once rate subsides, anticipate discharge with anticoagulation. See orders otherwise. Time with Patient: Less than 30
[2017-09-08] MEDS: AMIODARONE 450 MG in DEXTROSE 5% IN WATER 250 ML IV SCH ×2 (03:55)
[2017-09-08 06:07] LABS: Glucose,Whole Blood 115 mg/dL (75-99)
[2017-09-08 06:27] LABS: Basophils % (A) 0 %; Eosinophils # (A) 0.1 k/uL (0-0.7); Eosinophils % (A) 2 %; HCT 42.4 % (39.0-53.0); HGB 14.7 gm/dL (13.0-17.5); Lymphocytes # (A) 1.7 k/uL (1.0-4.8); Lymphocytes % (A) 31 %; MCH 32.8 pg (25.0-35.0); MCHC 34.6 g/dL (31.0-37.0); MCV 94.7 fL (80.0-100.0); Mean Platelet Volume 6.5; Monocytes # (A) 0.4 k/uL (0-1.0); Monocytes % (A) 6 %; Neutrophils # (A) 3.3 k/uL (1.3-7.7); Neutrophils % (A) 59 %; Platelet Count 160 k/uL (150-450); RBC 4.48 m/uL (4.30-5.90); WBC 5.7 k/uL (3.8-10.6)
[2017-09-08] MEDS ORDERED: AMIODARONE 200 MG TAB PO SCH (09:00)
[2017-09-08] MEDS: METOPROLOL SUCCINATE (ER) 50 MG TAB.ER.24H PO SCH (09:07)
[2017-09-08] MEDS: ASPIRIN 81 MG PO SCH (09:07)
--- NOTE | 2017-09-08 11:30 | P.PN ---
Subjective Progress Note Date: 09/08/17 This is 72-year-old gentleman with history of atrial fibrillation was admitted to the hospital with atrial fibrillation. He denies any symptoms of chest pain, shortness of breath, palpitations, dizziness or syncope. He was found to be in A. fib at his doctor's office. He does have history of coronary artery disease, diabetes, hypertension, hyperlipidemia, and osteoarthritis. Patient was seen and examined this morning, his heart rate continues to be in the 120 to 1:30 range and for this reason we are to start him on amiodarone. We will continue current dose of beta esperanza. His blood pressure is in the 100 systolic range. Echocardiogram with Doppler study was performed which revealed a normal left ventricular systolic function. 09/08/2017 Patient seen and examined this morning, heart rate being maintained in the 90s, however with the patient gets up and ambulates his heart rate goes up into the 1 :30 range. He still is on the IV amiodarone until 2:00 today at which time we will put him on oral amiodarone. We will also add Lanoxin to his medication regime today. Objective - Vital Signs Vital signs: Vital Signs Temp 97.3 F L 09/08/17 09:10 Pulse 103 H 09/08/17 09:10 Resp 16 09/08/17 09:10 BP 109/62 09/08/17 09:10 Pulse Ox 96 09/08/17 09:10 Intake & Output 09/07/17 09/08/17 09/08/17 18:59 06:59 18:59 Intake Total 480 322.706 360 Output Total 700 400 Balance -220 -77.294 360 Weight 96.7 kg Intake: Intake, IV Titration 322.706 Amount Amiodarone 450 mg In 322.706 Dextrose 5% in Water 250 ml @ 1 MG/MIN 33.33 mls/ hr IV .Q7H31M [facility] Rx#: [id number] Oral 480 360 Output: Urine 700 400 Other: # Voids 1 # Bowel Movements 1 - Exam PHYSICAL EXAMINATION: GENERAL: 72-year-old gentleman in no. Distress at the time of my examination HEENT: Head is atraumatic, normocephalic. Pupils equal, round. Sclera anicteric. Conjunctiva are clear. Mucous membranes of the mouth are moist. Neck is supple. There is no elevated jugular venous pressure.] bruit is heard. HEART EXAMINATION: Her S1 and S2 irregularly irregular CHEST EXAMINATION: Lungs are clear to auscultation and precussion. No chest wall tenderness is noted on palpation or with deep breathing. ABDOMEN: Soft, nontender. Bowel sounds are heard. No organomegaly noted. EXTREMITIES: 2+ peripheral pulses with no evidence of peripheral edema and no calf tenderness noted. NEUROLOGIC patient is awake, alert and oriented ?-3. . - Labs CBC & Chem 7: 09/08/17 05:44 09/05/17 12:46 Labs: Abnormal Lab Results - Last 24 Hours (Table) 09/08/17 Range/Units 05:57 POC Glucose (mg/dL) 115 H (75-99) mg/dL Assessment and Plan Plan: Assessment and plan #1 persistent atrial fibrillation #2 diabetes #3 hyperlipidemia Plan We will continue Xarelto as well as beta esperanza, and initiate oral amiodarone once the IV amiodarone has infused. We will also start the patient on Lanoxin. From our perspective he may be able to be discharged home today to follow-up with Dr. Fajardo in the office post discharge. DNP note has been reviewed, I agree with a documented findings and plan of care. Patient was seen and examined.
[2017-09-08 11:58] LABS: Glucose,Whole Blood 129 mg/dL (75-99)
[2017-09-08] MEDS: DIGOXIN 250 MCG/ML 2 ML AMP IVP SCH ×2 (12:37→16:38)
[2017-09-08] MEDS: SODIUM CHLORIDE 0.9% 500 ML IV SCH (14:24)
--- NOTE | 2017-09-08 15:29 | P.DS ---
Providers Date of admission: 09/05/17 15:09 Expected date of discharge: 09/08/17 Attending physician: Manuelito Castle Consults: 09/05/17 15:09 Consult Physician Urgent Consulting Provider: Keyur Fajardo Consult Reason/Comments: a fib w rvr Do you want consulting provider notified?: Yes Primary care physician: Manuelito Castle - Discharge Diagnosis(es) (1) Diabetes Current Visit: Yes Status: Acute (2) Hyperlipidemia Current Visit: Yes Status: Acute (3) Atrial fibrillation with RVR Current Visit: Yes Status: Acute Hospital Course: This is discharge summary a 72-year-old white my admitted for Recurrent atrial fibrillation with rapid ventricular response. Echocardiogram was nominal. New preop cardiology was consulted and started on Xarelto with digoxin and amiodarone w. The patient is now stabilizing with a heart raarged to follow-up with me . Patient Condition at Discharge: Stable Plan - Discharge Summary Discharge Rx Participant: Yes New Discharge Prescriptions: New Amiodarone [Cordarone] 200 mg PO BID #60 tab Digoxin [Lanoxin] 250 mcg PO DAILY #30 tab Metoprolol Succinate (ER) [Toprol XL] 50 mg PO DAILY #30 tab.er.24h Rivaroxaban [Xarelto] 20 mg PO W/SUPPER #30 tab Acetaminophen Tab [Tylenol] 650 mg PO Q6HR PRN tab PRN Reason: Fever And/ Or Pain Aspirin 81 mg PO DAILY chew Nitroglycerin 0.4 mg SL TID #90 tab.subl Continue Atorvastatin [Lipitor] 10 mg PO DAILY Temazepam [Restoril] 30 mg PO HS No Action metFORMIN HCL [Glucophage] 500 mg PO DAILY Discharge Medication List Atorvastatin [Lipitor] 10 mg PO DAILY 09/09/15 [History] Temazepam [Restoril] 30 mg PO HS 09/09/15 [History] metFORMIN HCL [Glucophage] 500 mg PO DAILY 09/09/15 [History] Acetaminophen Tab [Tylenol] 650 mg PO Q6HR PRN tab 09/08/17 [Rx] Amiodarone [Cordarone] 200 mg PO BID #60 tab 09/08/17 [Rx] Aspirin 81 mg PO DAILY chew 09/08/17 [Rx] Digoxin [Lanoxin] 250 mcg PO DAILY #30 tab 09/08/17 [Rx] Metoprolol Succinate (ER) [Toprol XL] 50 mg PO DAILY #30 tab.er.24h 09/08/17 [Rx ] Nitroglycerin 0.4 mg SL TID #90 tab.subl 09/08/17 [Rx] Rivaroxaban [Xarelto] 20 mg PO W/SUPPER #30 tab 09/08/17 [Rx] Follow up Appointment(s)/Referral(s): Manuelito Castle MD [Primary Care Provider] - 3 Days Keyur Fajardo MD [STAFF PHYSICIAN] - 10/03/17 2:30 pm Patient Instructions/Handouts: A-fib (Atrial Fibrillation) (DC), Safe Use of Anticoagulants (DC) Activity/Diet/Wound Care/Special Instructions: pts monthly copay for Xarelto is $43.50, first month filled free in [facility] pharmacy Discharge Disposition: HOME SELF-CARE
[2017-09-08] MEDS: RIVAROXABAN 20 MG TAB PO SCH (16:38)
[2017-09-08 16:45] LABS: Glucose,Whole Blood 105 mg/dL (75-99)
[2017-09-08 16:53] VITALS: TEMP 97.8
[2017-09-08 17:09] VITALS: BP 129/85; PULSE 113
[2017-09-09] MEDS ORDERED: DIGOXIN 250 MCG TAB PO SCH (09:00)
== END 2017-09-08 17:40 | disposition home or self-care (01) | DRG 310 ==
LOC: EC 12:08 → 6SEL 15:09
PROVIDERS: ADMIT Family Medicine; ATTEND Family Medicine
DX: I48.2 Chronic atrial fibrillation (principal); E11.9 Type 2 diabetes mellitus without complications; E78.5 Hyperlipidemia, unspecified; F43.10 Post-traumatic stress disorder, unspecified; I10 Essential (primary) hypertension; I25.10 Atherosclerotic heart disease of native coronary artery without angina pectoris; M19.90 Unspecified osteoarthritis, unspecified site; Z87.891 Personal history of nicotine dependence; Z79.84 Long term (current) use of oral hypoglycemic drugs; Z79.899 Other long term (current) drug therapy; Z82.0 Family history of epilepsy and other diseases of the nervous system
CPT/HCPCS: 36415; 71046; 80053; 80061; 82550; 82553; 83655; 83735; 83880; 84439; 84443; 84481; 84484; 85025; 85610; 85730; 93005; 93306; 96365; 96366; 96368; 96376; 99285

== ENCOUNTER → 2018-04-04 | Outpatient (CLI) | payer MEDICARE ==
[2018-04-04 20:03] LABS: Albumin 4.3 g/dL (3.80-4.90); Albumin/Globulin Ratio 2.26 (1.20-2.10); Bilirubin, Conjugated 0.4 mg/dL (0.20-0.40); Bilirubin,Unconjugated 0.5 mg/dL; Globulin 1.9 g/dL (1.6-3.3); Total Bilirubin 0.9 mg/dL (0.3-1.2); Total Protein 6.2 g/dL (6.2-8.2)
[2018-04-04 20:12] LABS: T4, Free (Free Thyroxine) 1.8 ng/dL (0.80-1.80)
== END ==
LOC: LABWHC1 14:14
PROVIDERS: ATTEND Internal Medicine Cardiovascular Disease
DX: I48.91 Unspecified atrial fibrillation (principal); E78.5 Hyperlipidemia, unspecified; I10 Essential (primary) hypertension
CPT/HCPCS: 36415; 80076; 84439; 84443

== ENCOUNTER → 2018-05-16 | Outpatient (CLI) | payer MEDICARE ==
[2018-05-16 12:14] LABS: Albumin 4.2 g/dL (3.80-4.90); Albumin/Globulin Ratio 2.21 (1.60-3.17); Bilirubin, Conjugated 0.3 mg/dL (0.20-0.40); Bilirubin,Unconjugated 0.4 mg/dL; Globulin 1.9 g/dL (1.6-3.3); Total Bilirubin 0.7 mg/dL (0.3-1.2); Total Protein 6.1 g/dL (6.2-8.2)
== END ==
LOC: LABWHC1 06:59
PROVIDERS: ATTEND Internal Medicine Cardiovascular Disease
DX: I10 Essential (primary) hypertension (principal)
CPT/HCPCS: 36415; 80076

== ENCOUNTER → 2019-04-23 | Outpatient (CLI) | payer MEDICARE ==
[2019-04-23 17:54] LABS: Chol/HDL Ratio 2.38; LDL Cholesterol,Calculated 38.8 mg/dL (0.0-131.0); VLDL Calculation 27.2 mg/dL (5.00-40.00)
== END | disposition home or self-care (01) ==
LOC: LABWHC1 08:02
PROVIDERS: ATTEND Internal Medicine Cardiovascular Disease
DX: E78.2 Mixed hyperlipidemia (principal)
CPT/HCPCS: 36415; 80061; 84450; 84460

== ENCOUNTER 2019-12-31 13:37 | Emergency (ER) | payer MEDICARE ==
[2019-12-31 14:04] VITALS: RESP 18; TEMP 97.9
[2019-12-31] MEDS ORDERED: GELATIN SPONGE,ABSORB (SMALL) 1 EACH SPONGE TOPICAL STA (14:53)
--- NOTE | 2019-12-31 14:53 | ED ---
General Adult HPI - General Chief complaint: Urogenital Stated complaint: Testicular Lac? Time Seen by Provider: 12/31/19 14:00 Source: patient, RN notes reviewed Mode of arrival: ambulatory Limitations: no limitations - History of Present Illness Initial comments: Patient is a pleasant 74-year-old male presenting to the emergency Department with bleeding from his testicle. Patient has had previous episode in the past however unclear why. Patient states this started around 9:30 this morning. Patient states that seems to have improved from the time he got here. Patient is on blood thinners. No recent trauma to the area however did have trauma years and years ago. No weakness or dyspnea. - Related Data Home Medications Medication Instructions Recorded Confirmed Atorvastatin [Lipitor] 10 mg PO DAILY 09/09/15 09/05/17 Temazepam [Restoril] 30 mg PO HS 09/09/15 09/05/17 metFORMIN HCL [Glucophage] 500 mg PO DAILY 09/09/15 09/05/17 Previous Rx's Medication Instructions Recorded Acetaminophen Tab [Tylenol] 650 mg PO Q6HR PRN tab 09/08/17 Amiodarone [Cordarone] 200 mg PO BID #60 tab 09/08/17 Aspirin 81 mg PO DAILY chew 09/08/17 Digoxin [Lanoxin] 250 mcg PO DAILY #30 tab 09/08/17 Metoprolol Succinate (ER) [Toprol 50 mg PO DAILY #30 tab.er.24h 09/08/17 XL] Nitroglycerin 0.4 mg SL TID #90 tab.subl 09/08/17 Rivaroxaban [Xarelto] 20 mg PO W/SUPPER #30 tab 09/08/17 Allergies Allergy/AdvReac Type Severity Reaction Status Date / Time No Known Allergies Allergy Verified 12/31/19 14:01 Review of Systems ROS Statement: Those systems with pertinent positive or pertinent negative responses have been documented in the HPI. ROS Other: All systems not noted in ROS Statement are negative. Constitutional: Denies: fever Eyes: Denies: eye pain ENT: Denies: ear pain Respiratory: Denies: cough Cardiovascular: Denies: chest pain Endocrine: Denies: fatigue Gastrointestinal: Denies: abdominal pain Genitourinary: Denies: dysuria Musculoskeletal: Denies: back pain Skin: Reports: as per HPI Neurological: Denies: weakness Past Medical History Past Medical History: Atrial Fibrillation, Coronary Artery Disease (CAD), Diabetes Mellitus, Hyperlipidemia, Hypertension, Osteoarthritis (OA) History of Any Multi-Drug Resistant Organisms: None Reported Past Surgical History: Appendectomy, Tonsillectomy Additional Past Surgical History / Comment(s): rectal abcess, carpal tunnel,cardioversion Past Anesthesia/Blood Transfusion Reactions: No Reported Reaction Past Psychological History: PTSD Smoking Status: Former smoker Past Alcohol Use History: None Reported Past Drug Use History: None Reported - Past Family History Mother Family Medical History: Cancer General Exam Limitations: no limitations General appearance: alert, in no apparent distress Head exam: Present: normocephalic Eye exam: Present: normal appearance Neck exam: Present: normal inspection Respiratory exam: Present: normal lung sounds bilaterally Cardiovascular Exam: Present: regular rate, normal rhythm GI/Abdominal exam: Present: soft. Absent: tenderness exam: Present: other (Left mid scrotum with minimal amount of oozing with varicocele) Back exam: Present: normal inspection Neurological exam: Present: alert Psychiatric exam: Present: normal affect, normal mood Skin exam: Present: normal color Course Vital Signs 12/31/19 12/31/19 12/31/19 14:00 15:03 16:03 Temperature 97.9 F Pulse Rate 102 H 109 H Respiratory 18 18 18 Rate Blood Pressure 137/86 124/108 O2 Sat by Pulse 97 98 Oximetry 12/31/19 17:26 Temperature Pulse Rate 102 H Respiratory 18 Rate Blood Pressure 131/100 O2 Sat by Pulse 98 Oximetry - Reevaluation(s) Reevaluation #1: 12/31/19 15:45 Hemorrhage has spontaneously controlled itself. Gelfoam placed over the area. Medical Decision Making - Medical Decision Making Patient reevaluated, still no bleeding. Patient states he does have a history of hypertension but is unclear what medications he is on. 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 Patient given Norvasc 5 mg by mouth. Disposition Clinical Impression: Bleeding from varicose vein Disposition: HOME SELF-CARE Condition: Stable Instructions (If sedation given, give patient instructions): Bleeding Disorders (ED) Additional Instructions: Hold Xarelto for one day. If bleeding recurs hold pressure. Return for uncontrolled bleeding, weakness or shortness of breath, worsening symptoms or other concerns Is patient prescribed a controlled substance at d/c from ED?: No Referrals: Manuelito Castle MD [Primary Care Provider] - 1-2 days Time of Disposition: 17:45
[2019-12-31] MEDS ORDERED: amLODIPine 5 MG TAB PO STA (17:25)
[2019-12-31 17:26] VITALS: PULSE 102
[2019-12-31 18:51] VITALS: BP 126/84
== END 2019-12-31 18:20 | disposition home or self-care (01) ==
LOC: EC 13:37
DX: I86.1 Scrotal varices (principal); I48.91 Unspecified atrial fibrillation; I25.10 Atherosclerotic heart disease of native coronary artery without angina pectoris; E11.9 Type 2 diabetes mellitus without complications; E78.5 Hyperlipidemia, unspecified; I10 Essential (primary) hypertension; Z79.899 Other long term (current) drug therapy; Z79.84 Long term (current) use of oral hypoglycemic drugs; Z87.891 Personal history of nicotine dependence
CPT/HCPCS: 99283

== ENCOUNTER 2020-01-17 06:18 | Day surgery (SDC) | payer MEDICARE ==
[2020-01-16 09:22] VITALS: BMI 28.7
[~2020-01-17 06:18] MED LIST changes: +SODIUM CHLORIDE 0.9% 1,000 ML IV SCH
[2020-01-17 06:58] LABS: Glucose,Whole Blood 110 mg/dL (75-99)
[2020-01-17] MEDS ORDERED: SODIUM CHLORIDE 0.9% 500 ML 500 ML IV ONE (07:00)
[2020-01-17] MEDS: BENZOCAINE SPRAY 1 CAN TOPICAL ONE ×2 (07:27→07:49)
[2020-01-17 07:30] LABS: African American GFR (CKD) >90 (>60 ml/min/1.73 sqM); Anion Gap 7 mmol/L; Blood Urea Nitrogen 24 mg/dL (9-20); Calcium 9.1 mg/dL (8.4-10.2); Carbon Dioxide 23 mmol/L (22-30); Chloride 110 mmol/L (98-107); Glucose 125 mg/dL (74-99); Non-African American GFR(CKD) 85 (>60 ml/min/1.73 sqM); Potassium 4.2 mmol/L (3.5-5.1); Sodium 140 mmol/L (137-145)
[2020-01-17] MEDS ORDERED: PROPOFOL 10 MG/ML 20 ML VIAL IV ONE (07:51)
[2020-01-17] MEDS ORDERED: SODIUM CHLORIDE 0.9% 1,000 ML IV SCH (08:15)
--- NOTE | 2020-01-17 08:19 | P.PCN ---
Date of Procedure: 01/17/20 Preoperative Diagnosis: Atrial fibrillation Postoperative Diagnosis: Conversion to sinus rhythm Procedure(s) Performed: GIRISH cardioversion Description of Procedure: Patient was brought to the lab in a fasting state. Patient was prepped and draped in the usual fashion. GIRISH: Patient was given IV sedation by department of anesthesia. Throat was sprayed with Hurricaine. A lubricated Omni probe was introduced in the oropharynx and was advanced into the esophagus. Multiple views were obtained both from the esophagus and stomach. Patient tolerated the procedure well. No immediate complications. Color, pulsed and continuous Doppler studies were done. Saline contrast bubble studies also done. Findings: #1. Aortic valve function is normal. #2. Mitral valve showed mild regurgitation #3. Tricuspid valve showed mild regurgitation. #4. Interatrial septum is intact without any spontaneous shunt noted. #5. Contrast bubble injection did not reveal any evidence of PFO #6. No clot in the left atrial appendage. #7. Biatrial enlargement. #8. Impaired LV function. Final impression: No clot in the left atrial appendage. Proceed with cardioversion. Cardioversion: Patient received anesthesia by department of anesthesia. Anterior posterior paddles were applied. A synchronized shock of 150 J followed with 300 J was applied. Patient converted back to sinus rhythm. No immediate complications. Plan: Patient will monitor for next 2 hours, if stable patient will be discharged home.
[2020-01-17 08:40] VITALS: RESP 16; TEMP 97
[2020-01-17] MEDS ORDERED: SODIUM CHLORIDE 0.9% 1,000 ML IV ONE ×2 (08:50)
[2020-01-17 09:16] VITALS: PULSE 47
[2020-01-17 10:18] VITALS: BP 122/74
== END 2020-01-17 10:18 | disposition home or self-care (01) ==
LOC: CATHCVL 06:18
PROVIDERS: ATTEND Internal Medicine Cardiovascular Disease
DX: I48.19 Other persistent atrial fibrillation (principal); I34.0 Nonrheumatic mitral (valve) insufficiency; I25.10 Atherosclerotic heart disease of native coronary artery without angina pectoris; I10 Essential (primary) hypertension; E78.5 Hyperlipidemia, unspecified; E11.9 Type 2 diabetes mellitus without complications; M19.90 Unspecified osteoarthritis, unspecified site; Z87.891 Personal history of nicotine dependence; Z79.82 Long term (current) use of aspirin; Z79.01 Long term (current) use of anticoagulants; Z79.84 Long term (current) use of oral hypoglycemic drugs; Z79.899 Other long term (current) drug therapy; Z98.890 Other specified postprocedural states
CPT/HCPCS: 93312; 93320; 93325; 92960; 80048; J2704

== ENCOUNTER → 2020-07-30 | Outpatient (CLI) | payer MEDICARE ==
[2020-07-30 13:46] LABS: African American GFR (CKD) 85.6 (60.0-200.0); Albumin 4.3 g/dL (3.80-4.90); Albumin/Globulin Ratio 1.95 (1.60-3.17); Anion Gap 7.9 mmol/L (4.00-12.00); Calcium 9.3 mg/dL (8.7-10.3); Carbon Dioxide 28.1 mmol/L (21.6-31.8); Chol/HDL Ratio 2.78; Globulin 2.2 g/dL (1.6-3.3); LDL Cholesterol,Calculated 65.2 mg/dL (0.0-131.0); Non-African American GFR(CKD) 73.8 (60.0-200.0); Potassium 4.8 mmol/L (3.5-5.5); Total Bilirubin 1.1 mg/dL (0.2-1.2); Total Protein 6.5 g/dL (6.2-8.2); VLDL Calculation 23.8 mg/dL (5.00-40.00)
[2020-07-30 13:55] LABS: T4, Free (Free Thyroxine) 1.7 ng/dL (0.80-1.80)
== END | disposition home or self-care (01) ==
LOC: LABWHC1 07:01
PROVIDERS: ATTEND Internal Medicine Cardiovascular Disease
DX: I48.91 Unspecified atrial fibrillation (principal); E78.5 Hyperlipidemia, unspecified; Z79.899 Other long term (current) drug therapy
CPT/HCPCS: 36415; 80053; 80061; 84439; 84443

== ENCOUNTER → 2021-01-30 | Outpatient (CLI) | payer MEDICARE ==
[2021-01-30 13:28] LABS: Albumin 4.1 g/dL (3.8-4.9); Albumin/Globulin Ratio 1.95 (1.60-3.17); Bilirubin, Conjugated 0.36 mg/dL (0.20-0.40); Bilirubin,Unconjugated 0.74 mg/dL (0.20-1.00); Globulin 2.1 g/dL (1.6-3.3); T4, Free (Free Thyroxine) 1.63 ng/dL (0.800-1.800); Total Bilirubin 1.1 mg/dL (0.30-1.20); Total Protein 6.2 g/dL (6.2-8.2)
== END | disposition home or self-care (01) ==
LOC: LABWHC1 07:09
PROVIDERS: ATTEND Internal Medicine Cardiovascular Disease
DX: I48.20 Chronic atrial fibrillation, unspecified (principal); Z79.899 Other long term (current) drug therapy
CPT/HCPCS: 36415; 80076; 84439; 84443

== ENCOUNTER → 2021-09-24 | Outpatient (CLI) | payer MEDICARE ==
--- NOTE | 2021-09-24 12:17 | CT ---
EXAMINATION TYPE: CT abdomen pelvis wo con CT DLP: 1030 mGycm, Automated exposure control for dose reduction was used. DATE OF EXAM: 09/24/2021 12:01 PM COMPARISON: CT abdomen pelvis most recent from 12/22/2016. CLINICAL INDICATION:Male, 76 years old with history of R10.32 LEFT LOWER QUADRANT PAIN; Left lower qu adrant pain TECHNIQUE: Standard CT of the abdomen and pelvis without IV or oral contrast. Lack of IV or oral co ntrast limits evaluation of solid and hollow organ viscera. Coronal and sagittal reformats were perfo rmed. FINDINGS: LOWER CHEST: There are 2 tiny nodules along the left major fissure. Favored to represent intrafissura l lymph nodes. ABDOMEN LIVER: Unremarkable noncontrast appearance. GALLBLADDER AND BILE DUCTS: Unremarkable. No biliary ductal dilatation. PANCREAS: Unremarkable noncontrast appearance. SPLEEN: Unremarkable noncontrast appearance. ADRENAL GLANDS: Unremarkable noncontrast appearance. KIDNEYS AND URETERS: No evidence of hydronephrosis or renal calculus. The ureters are unremarkable. PELVIS BLADDER: Unremarkable REPRODUCTIVE: Unremarkable. ABDOMEN & PELVIS STOMACH AND BOWEL: Stomach and duodenum are unremarkable. No focal wall thickening or surrounding inf lammatory changes. No evidence of bowel obstruction. PERITONEUM: No evidence of pneumoperitoneum or free fluid. Small left paracolic peripherally calcifie d lesion most consistent with a torsed epiploic appendage which was seen previously but calcified now . VASCULATURE: Mild atherosclerotic calcifications are present throughout the abdominal aorta and its b ranches. No evidence of aortic aneurysm. MUSCULOSKELETAL: No acute osseous abnormalities. Remote left inferior pubic rami fracture. Multilevel degenerative changes of visualized spine. Schmorl's noted involving the superior endplate of T11. LYMPH NODES: No gross evidence for lymphadenopathy. SOFT TISSUE/ABDOMINAL WALL: Unremarkable IMPRESSION: No acute abdominal cyst pelvic process.
== END | disposition home or self-care (01) ==
LOC: RADCTMAIN 11:27
PROVIDERS: ATTEND Family Medicine
DX: R10.32 Left lower quadrant pain (principal)
CPT/HCPCS: 74176

== ENCOUNTER → 2021-09-29 | Outpatient (CLI) | payer MEDICARE ==
--- NOTE | 2021-09-29 15:14 | XR ---
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 TECHNIQUE: The cervical spine was imaged in 4 projections. Frontal, lateral, odontoid and bilateral o blique. FINDINGS: Multilevel degenerative changes of the cervical spine with disc space narrowing, endplate sclerosis, and osteophyte formation. This is progressed from prior examination 2012 and is most pronounced at C3 -C4. Moderate neural foraminal stenosis at C2-C3 and C3-C4 bilaterally. Multilevel facet arthropathy demonstrated. No acute fracture. Mild retrolisthesis of C3 on C4. Pedicles are intact. Soft tissues are within normal limits. The odontoid appears intact. IMPRESSION: 1. No fracture or dislocation. 2. Progressed moderate degenerative disc disease changes of the cervical spine.
== END | disposition home or self-care (01) ==
LOC: RADXRMAIN 14:30
PROVIDERS: ATTEND Internal Medicine
DX: M47.812 Spondylosis without myelopathy or radiculopathy, cervical region (principal); M50.31 Other cervical disc degeneration, high cervical region
CPT/HCPCS: 72052

== ENCOUNTER → 2022-03-29 | Outpatient (CLI) | payer MEDICARE ==
--- NOTE | 2022-03-29 13:21 | CTL ---
EXAMINATION TYPE: CT Low Dose Lung DATE OF EXAM ORDERED: 03/29/2022 HISTORY: Z87.891 . Lung cancer screening CT DLP: 120.[address] CTDI: 3.40 mGy Automated exposure control for dose reduction was used. SCREENING VISIT: First screening visit COMPARISON: Chest radiograph 09/05/2017. TECHNIQUE: Low dose computed tomography scan was performed through the chest at 1 mm thick sections a nd reconstructed images in multiple planes at 1 mm and [address] DIAGNOSTIC QUALITY: Satisfactory FINDINGS: LUNG NODULES: No clinically significant pulmonary nodule's. A couple of 2 mm nodules along the left m ajor fissure favored to represent intrafissural lymph nodes. LUNGS: COPD: Severity: None Fibrosis: Severity: None Lymph nodes: None Other findings: None RIGHT PLEURAL SPACE: Effusion: None Calcification: None Thickening: None Pneumothorax: None LEFT PLEURAL SPACE: Effusion: None Calcification: None Thickening: None Pneumothorax: None HEART: Heart Size: Normal Coronary Calcification: Moderate Pericardial Effusion: None OTHER FINDINGS: Upper abdomen: None Bony thorax: No acute osseous abnormality. Multilevel degenerative disc disease. Schmorl's node versu s chronic central compression deformity involving the superior endplate of T11. Supraclavicular region: None Other: None IMPRESSION: No clinically significant pulmonary nodules. CT LUNG RAD AND CT CHEST RECOMMENDATION: Lung-Rad 1 Negative: Continue annual screening with LDCT in 12 months. S Modifier (other clinically significant findings): None
== END | disposition home or self-care (01) ==
LOC: RADCTMAIN 12:18
PROVIDERS: ATTEND Internal Medicine
DX: Z12.2 Encounter for screening for malignant neoplasm of respiratory organs (principal); Z87.891 Personal history of nicotine dependence
CPT/HCPCS: 71271

== ENCOUNTER 2023-05-10 11:59 | Day surgery (SDC) | payer MEDICARE ==
[2023-05-06 14:11] VITALS: BMI 30.4
[2023-05-10 12:27] LABS: Glucose,Whole Blood 126 mg/dL (70-110)
[2023-05-10] MEDS: LACTATED RINGERS 1,000 ML IV SCH (12:35)
[2023-05-10 12:52] LABS: African American GFR (CKD) >90 (>60 ml/min/1.73 sqM); Anion Gap 8 mmol/L; Blood Urea Nitrogen 18 mg/dL (9-20); Calcium 9.6 mg/dL (8.4-10.2); Carbon Dioxide 25 mmol/L (22-30); Chloride 107 mmol/L (98-107); Glucose 129 mg/dL (74-99); Non-African American GFR(CKD) 81 (>60 ml/min/1.73 sqM); Potassium 4.4 mmol/L (3.5-5.1); Sodium 140 mmol/L (137-145)
[2023-05-10 12:59] VITALS: TEMP 98.5
[2023-05-10] MEDS ORDERED: PROPOFOL 10 MG/ML 20 ML VIAL IV ONE (13:25)
[2023-05-10] MEDS ORDERED: LIDOCAINE 1% INJ 10MG/ML (20 ML MDV) ONE (13:25)
[2023-05-10] MEDS: BENZOCAINE SPRAY 1 CAN TOPICAL ONE (13:31)
[2023-05-10 13:59] LABS: Glucose,Whole Blood 112 mg/dL (70-110)
--- NOTE | 2023-05-10 14:03 | P.TEE ---
Description of Procedure(s): Procedure performed: Transesophageal Echocardiogram with color flow doppler, pulsed wave doppler and continuous wave doppler, synchronized cardioversion Moderate conscious sedation: Moderate conscious sedation was supplied by anesthesia, see separate report. Complications: none Indications: Atrial fibrillation PROCEDURE: After the risks, benefits and alternatives of the above mentioned procedure was explained in detail with the patient, informed consent was obtained. Patient was brought to the lab in a fasting state. Patient was given sedation by anesthesia, see separate report. The throat was sprayed with Hurricane to anesthetize the throat. A lubricated Omni probe was then introduced into the esophagus and stomach and multiple views were obtained. 2D echo with color flow doppler, pulsed wave doppler and continuous wave doppler was utilized. Agitated saline bubbles were injected to assess for any intra-atr ial shunt. The probe was then removed. There was no thrombus noted and therefore patient underwent synchronized cardioversion x 1 with 200J with resultant sinus rhythm. Patient tolerated the procedure well. Patient was transferred to the post procedure area in stable and satisfactory condition. FINDINGS: 1. The aortic valve is tricuspid with normal function with mild aortic regurgitation 2. The mitral valve appears be normal with mild to moderate mitral regurgitation. 3. Tricuspid valve is normal with mild tricuspid regurgitation. 4. The interatrial septum is intact. No evidence of PFO. 5. Left atrial appendage is free of clot. 6. Left ventricular ejection fraction severely decreased with left ventricular ejection fraction 25%
[2023-05-10] MEDS: IV FLUID CONTINUATION 1,000 ML IV ONE (14:07)
[2023-05-10 15:08] VITALS: BP 123/81; PULSE 53; RESP 95
== END 2023-05-10 15:08 | disposition home or self-care (01) ==
LOC: OR 11:59
PROVIDERS: ATTEND Internal Medicine
DX: I08.3 Combined rheumatic disorders of mitral, aortic and tricuspid valves (principal); I10 Essential (primary) hypertension; I42.9 Cardiomyopathy, unspecified; E11.9 Type 2 diabetes mellitus without complications; E78.5 Hyperlipidemia, unspecified; I48.0 Paroxysmal atrial fibrillation; I25.10 Atherosclerotic heart disease of native coronary artery without angina pectoris; I25.2 Old myocardial infarction; Z79.01 Long term (current) use of anticoagulants; Z79.84 Long term (current) use of oral hypoglycemic drugs; Z79.899 Other long term (current) drug therapy; Z87.891 Personal history of nicotine dependence
CPT/HCPCS: 93312; 93320; 93325; 92960; 80048; J2001; J2704

== ENCOUNTER 2023-06-01 10:59 | Day surgery (SDC) | payer MEDICARE ==
[~2023-06-01 10:59] MED LIST changes: +ALPRAZolam 0.25 MG TAB PO PRN; +ASPIRIN 325 MG TAB PO STA; +HEPARIN SODIUM,PORCINE (1 ML) 2,500 UNIT in SODIUM CHLORIDE 0.9% 250 ML IRRIGATION PRN; +HEPARIN SODIUM,PORCINE 10,000 UNIT in SODIUM CHLORIDE 0.9% 1,000 ML IRRIGATION PRN; -LACTATED RINGERS 1,000 ML IV SCH; +NITROGLYCERIN SL TABS 0.4 MG TAB SUBLINGUAL PRN; -SODIUM CHLORIDE 0.9% 1,000 ML IV SCH
[2023-06-01] MEDS: SODIUM CHLORIDE 0.9% 1,000 ML in EMPTY BAG 1 BAG IV SCH (11:15)
[2023-06-01] MEDS: ALPRAZolam 0.5 MG TAB PO PRN (11:17)
[2023-06-01] MEDS ORDERED: ALPRAZolam 0.5 MG TAB ONE (11:18)
[2023-06-01 11:26] LABS: Glucose,Whole Blood 131 mg/dL (70-110)
[2023-06-01 11:39] VITALS: RESP 18; TEMP 97.8
[2023-06-01] MEDS: MIDAZOLAM 2 MG/2 ML VIAL IVP ONE (14:28)
[2023-06-01] MEDS ORDERED: fentaNYL (PF) 50 MCG/ML 2 ML AMP ONE (14:28)
[2023-06-01] MEDS: fentaNYL (PF) 50 MCG/ML 2 ML AMP IVP ONE (14:28)
[2023-06-01] MEDS ORDERED: HEPARIN SODIUM 1,000 UN/ML (10ML VL) ONE (14:31)
[2023-06-01] MEDS: LIDOCAINE 1% INJ 10MG/ML (20 ML MDV) SQ ONE (14:31)
[2023-06-01] MEDS: VERAPAMIL SYRINGE (5 MG/10 ML) INTRAARTER ONE (14:34)
[2023-06-01] MEDS: HEPARIN SODIUM 1,000 UN/ML (10ML VL) IV ONE (14:37)
[2023-06-01] MEDS: IOPAMIDOL-370 100ML BTL INJ ONE (14:46)
[2023-06-01 15:22] LABS: Basophils % (A) 0 %; Eosinophils % (A) 1 %; HCT 52.7 % (39.0-53.0); HGB 17.4 gm/dL (13.0-17.5); Lymphocytes # (A) 2.5 k/uL (1.0-4.8); Lymphocytes % (A) 26 %; MCH 31.7 pg (25.0-35.0); MCHC 33.1 g/dL (31.0-37.0); MCV 95.9 fL (80.0-100.0); Mean Platelet Volume 8.5; Monocytes # (A) 0.5 k/uL (0-1.0); Monocytes % (A) 5 %; Neutrophils # (A) 6.4 k/uL (1.3-7.7); Neutrophils % (A) 67 %; Platelet Count 178 k/uL (150-450); RBC 5.49 m/uL (4.30-5.90); WBC 9.6 k/uL (3.8-10.6)
--- NOTE | 2023-06-01 16:43 | P.CARDCATH ---
Description of Procedure: PROCEDURES PERFORMED: Left heart catheterization, bilateral coronary angiography, ultrasound guided arterial access INDICATION: Cardiomyopathy CONSENT:I have discussed the risks, benefits and alternative therapies for the above-mentioned procedure and for both sedation/analgesia as well as necessary blood product administration, if indicated, as they pertain to this patient. The patient has indicated understanding and acceptance of the risks and procedures discussed. PROCEDURE: After the risks, benefits and alternatives of the above mentioned procedure explained in detail with the patient, informed consent was obtained. Patient was taken to the catheterization lab and prepped and draped in usual fashion. Ultrasound guidance was used to assess for arterial access. 1% lidocaine was used to anesthetize the right radial artery. A 6-[place] sheath was placed in the right radial artery using modified Seldinger technique and ultrasound guidance. Left coronary angiography was performed with a 5-[place] JL 3.5 catheter and right coronary angiography was performed with a 5-[place] FR5 catheter in various views. A 5-[place] FR5 catheter was inserted into the left ventricle and pressure measurements were obtained. The right radial sheath was removed and a TR band was placed with hemostasis achieved. The patient tolerate d the procedure well. Patient was transported back to the post catheterization holding area in stable condition. Conscious Sedation: Patient was monitored under the direct supervision of myself for conscious sedation using Versed and fentanyl for a total duration of 14 minutes HEMODYNAMICS: Aorta: 112/82 LV: 110/6, LVEDP 10 SELECTIVE CORONARY ARTERIOGRAPHY: LEFT MAIN: The left main is a large caliber vessel which is short and nearly dual ostia which bifurcates into the LAD and circumflex. There is no significant stenosis. LEFT ANTERIOR DESCENDING CORONARY ARTERY: LAD is a large caliber vessel which wraps around to the apex. There are mild luminal irregularities of the LAD LEFT CIRCUMFLEX CORONARY ARTERY: Left circumflex is a large caliber vessel without significant stenosis. The circumflex is the dominant vessel. RIGHT CORONARY ARTERY: The right coronary artery is a large caliber vessel which gives off an acute marginal branch and is nondominant vessel. There is no significant stenosis FINAL IMPRESSION: 1. Relatively normal coronary arteries with only mild luminal irregularities of the LAD 2. Normal left sided filling pressures PLAN: 1. Aggressive risk factor modification per most recent ACC/AHA guidelines. 2. Follow-up in the office in 1-2 weeks.
[2023-06-01 16:53] VITALS: BP 124/56; PULSE 105
== END 2023-06-01 17:41 | disposition home or self-care (01) ==
LOC: CATHCVL 10:59 → 6NMEDSUR 14:45 → CATHCVL 14:45
PROVIDERS: ATTEND Internal Medicine
DX: I42.9 Cardiomyopathy, unspecified (principal); I10 Essential (primary) hypertension; E78.5 Hyperlipidemia, unspecified; E11.9 Type 2 diabetes mellitus without complications; F17.210 Nicotine dependence, cigarettes, uncomplicated; I48.0 Paroxysmal atrial fibrillation; Z82.49 Family history of ischemic heart disease and other diseases of the circulatory system; Z79.01 Long term (current) use of anticoagulants
CPT/HCPCS: 93458; 76937; 85025; C1769 ×2; C1894; J2250; J2001; J3010; J1644; Q9967

== ENCOUNTER → 2023-07-25 | Outpatient (CLI) | payer MEDICARE ==
[2023-07-25 11:04] LABS: ALT 12 U/L (10-49); AST 17 U/L (14-35)
== END | disposition home or self-care (01) ==
LOC: LABWHC1 07:30
PROVIDERS: ATTEND Internal Medicine
DX: I50.9 Heart failure, unspecified (principal); R06.00 Dyspnea, unspecified; Z79.899 Other long term (current) drug therapy
CPT/HCPCS: 36415; 84443; 84450; 84460

== ENCOUNTER → 2024-01-31 | Outpatient (CLI) | payer MEDICARE ==
--- NOTE | 2024-01-31 14:05 | US ---
EXAMINATION TYPE: US kidneys/renal and bladder DATE OF EXAM: 01/31/2024 COMPARISON: NONE CLINICAL INDICATION: Male, 78 years old with history of R31.9 HEMATURIA; Microscopic hematuria. TECHNIQUE: Grayscale imaging of the bilateral kidneys and urinary bladder: FINDINGS: EXAM MEASUREMENTS: Right Kidney: 11.8 x 5.0 x 4.4 cm Left Kidney: 12.3 x 5.4 x 4.5 cm Right Kidney: no evidence of hydronephrosis Left Kidney: no evidence of hydronephrosis Bladder: appears wnl Bilateral Jets seen: no There is no evidence for hydronephrosis at this point in time. No nephrolithiasis is seen. No jose ramon s are identified. The urinary bladder is anechoic. IMPRESSION: No evidence for obstructive uropathy or mass. [facility], , 01/31/2024 2:02 PM
== END | disposition home or self-care (01) ==
LOC: RADUSWWP 13:20
PROVIDERS: ATTEND Internal Medicine
DX: R31.29 Other microscopic hematuria (principal)
CPT/HCPCS: 76770

== ENCOUNTER → 2024-02-23 | Outpatient (CLI) | payer MEDICARE ==
[2024-02-23 15:17] LABS: African American GFR (CKD) 80 (>60 ml/min/1.73 sqM); Blood Urea Nitrogen 22 mg/dL (9-20); Non-African American GFR(CKD) 70 (>60 ml/min/1.73 sqM)
--- NOTE | 2024-02-23 19:33 | CT ---
EXAMINATION TYPE: CT urogram wo/w con DATE OF EXAM: 02/23/2024 4:49 PM COMPARISON: CT abdomen pelvis most recent from 09/24/2021 CLINICAL INDICATION: Male, 79 years old with history of R31.29 Other microscopic hematuria; PHH, Brandon turia and unknown weight gain. TECHNIQUE: Urogram with imaging of the abdomen and pelvis. Coronal and sagittal reformats were performed. 2D and 3D reconstructions are performed to assist visualization of the urinary tract on a separate workstat ion. Contrast used:100cc mL of Isovue 370 with IV Contrast, Oral contrast used: None. CT DLP: 4208 mGycm, Automated exposure control for dose reduction was used. FINDINGS: LOWER CHEST: The heart is mildly enlarged for size. GENITOURINARY: RIGHT KIDNEY AND URETER: No calculi. No hydronephrosis or hydroureter. No renal mass or other lesions . Limited distal ureter secondary to lack of excreted IV contrast with that said urothelial lesions: no filling defect, dilation, stricture or wall thickening. LEFT KIDNEY AND URETER: No calculi. No hydronephrosis or hydroureter. No renal mass or other lesions. Limited distal ureter secondary to lack of excreted IV contrast with that said urothelial lesions: n o filling defect, dilation, stricture or wall thickening. URINARY BLADDER: Moderately well distended. Limited evaluation secondary to partial filling of the bl adder with excreted IV contrast. No calculi or obvious mass. REPRODUCTIVE: Unremarkable. ABDOMEN LIVER: Unremarkable. GALLBLADDER AND BILE DUCTS: Unremarkable PANCREAS: Unremarkable. SPLEEN: Unremarkable. ADRENAL GLANDS: Unremarkable. STOMACH AND BOWEL: . No evidence of bowel obstruction. Scattered colonic diverticula. PERITONEUM: No evidence of pneumoperitoneum, free fluid, or adenopathy. VASCULATURE: No evidence of aortic aneurysm. Recanalization of the paraumbilical vein. MUSCULOSKELETAL: No acute osseous abnormalities. Moderate disc degeneration changes are present throu ghout the thoracolumbar spine. LYMPH NODES: No gross evidence for lymphadenopathy. SOFT TISSUE/ABDOMINAL WALL: Fat-containing left inguinal hernia. Fat-containing umbilical hernia. IMPRESSION: 1. No evidence of urolithiasis or renal/urothelial neoplasm. The urinary bladder is limited due to on ly the dependent portion no mass posteriorly identified. Posteriorly being filled with excreted IV co ntrast. 2. Recanalization of the periumbilical vein correlate for portal hypertension. 3. Mild cardiomegaly. 4. Left inguinal fat-containing hernia and umbilical hernia. [facility], , 02/23/2024 7:31 PM
== END | disposition home or self-care (01) ==
LOC: RADCTMAIN 14:21
PROVIDERS: ATTEND Internal Medicine
DX: K42.9 Umbilical hernia without obstruction or gangrene (principal); R31.29 Other microscopic hematuria; I51.7 Cardiomegaly; K76.6 Portal hypertension
CPT/HCPCS: 82565; 84520; 74178; 36415; 74400; Q9967